=== PATIENT | male | born 1985 | race Caucasian/White ===

== ENCOUNTER 2021-04-19 12:36 | Emergency (ER) | payer OTHER ==
[~2021-04-19] VITALS: Ht 175.3 cm; Wt 74.8 kg
[~2021-04-19 12:36] MED LIST: CLEOCIN HCL150 MG PO; HYDROCODONE-AP1 EAC6 PO
[2021-04-19 13:20] LABS: ABSOLUTE BASOPHILS 0.1 thou/uL (0.0-0.2); ABSOLUTE EOSINOPHILS 0.1 thou/uL (0.0-0.7); ABSOLUTE LYMPHOCYTES 2.7 thou/uL (0.8-5.3); ABSOLUTE MONOCYTES 1.1 thou/uL (0.0-1.2); ABSOLUTE NEUTROPHILS 7.1 thou/uL (1.6-8.1); BASOPHILS 1.3 %; EOSINOPHILS 1.3 %; HEMATOCRIT 49.1 % (42.0-52.0); HEMOGLOBIN 16.8 gm/dL (14.0-18.0); LYMPHOCYTES 24.1 %; MCHC 34.1 g/dL (28.0-37.0); MONOCYTES 9.8 %; MPV 6.8 fl. (7.2-11.1); NUCLEATED RBCS 0 /100WBC; PLATELET COUNT* 321 thou/uL (150-400); POLYS 63.5 %; RBC 5.77 mil/uL (4.50-6.00); WBC 11.2 thou/uL (4.0-11.0)
[2021-04-19 13:30] LABS: CALCIUM 9.7 mg/dL (8.5-10.1); CREATININE 0.9 mg/dL (0.6-1.3); POTASSIUM 3.9 mmol/L (3.5-5.1)
[2021-04-19 13:35] LABS: ALBUMIN 4.1 g/dL (3.4-5.0); TOTAL BILIRUBIN 0.4 mg/dL (<0.1-1.0)
[2021-04-19 14:31] LABS: URINE BILIRUBIN NEGATIVE (Negative); URINE BLOOD NEGATIVE (Negative); URINE CLARITY CLEAR; URINE COLOR YELLOW; URINE GLUCOSE-RANDOM NEGATIVE (Negative); URINE KETONES NEGATIVE (Negative); URINE LEUKOCYTES-REFLEX NEGATIVE (Negative); URINE NITRITE-REFLEX NEGATIVE (Negative); URINE PROTEIN NEGATIVE (Negative); URINE UROBILINOGEN 0.2 E.U./dl (0.2-1.0)
[2021-04-19] MEDS ORDERED: ZOFRAN ODT4 MG PO (15:38)
[2021-04-19 16:00] VITALS: BP 148/94
== END 2021-04-19 16:00 | disposition home or self-care (01) ==
LOC: M.ERS 12:36
PROVIDERS: Nurse Practitioner Psychiatric/Mental Health
DX: R11.2 Nausea with vomiting, unspecified (principal); R06.02 Shortness of breath; M54.50 Low back pain, unspecified; R68.83 Chills (without fever); M54.6 Pain in thoracic spine; F17.210 Nicotine dependence, cigarettes, uncomplicated